=== PATIENT | female | born 1930 | race Hispanic/Latino ===

== ENCOUNTER 2018-09-21 15:18 | Outpatient (CLI) | payer MEDICARE ==
--- NOTE | 2018-09-21 16:26 | XRay Report ---
BILATERAL HAND THREE VIEWS EACH: 09/21/18 CLINICAL: Bilateral hand arthralgia. No comparison. FINDINGS: Moderate diffuse osteopenia. Right:No fracture or dislocation.Severe osteoarthritis at the basal joint of the thumb. There is some heterotopic new bone formation between the bases of the first and second metacarpals. Mild osteoarthritis at the first MTP joint and minimal arthritis in the rest of the hand and wrist. The carpal bones are intact. No erosions. No soft tissue edema. No soft tissue air or foreign body. Left: Severe osteoarthritis at the basal joint of the thumb. Fragmentation of the pisiform and some extra-articular calcification adjacent to the fusiform which is suggestive of an old traumatic injury and fracture. The rest of the carpal bones are intact. Calcification of the the triangular fibrocartilage and at the radiocarpal joint. Moderate osteoarthritis of the IP joints of digits 2 through 5. No erosions. No soft tissue edema. No soft tissue air or foreign body. IMPRESSION: 1. 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 2. 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 3. No erosions. 4. Fragmentation of the left pisiform suggests an old traumatic injury. 5. 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 However, since there are none of these findings in the right wrist, these calcifications may be related to old trauma.
== END 2018-09-21 15:19 | disposition home or self-care (01) ==
LOC: SPVIMAG 15:18
PROVIDERS: ATTEND Internal Medicine
DX: M19.042 Primary osteoarthritis, left hand (principal); M19.041 Primary osteoarthritis, right hand